=== PATIENT | female | born 1980 | race American Indian/Alaskan Native ===

== ENCOUNTER 2017-05-21 21:20 | Emergency (ER) | payer OTHER ==
[2017-05-21 21:30] VITALS: BP 94/56; PULSE 83; RESP 16; TEMP 98.2; O2SAT 98
--- NOTE | 2017-05-21 23:19 | US ---
EXAM: US Duplex Right Lower Extremity Veins CLINICAL HISTORY: 37 years old, female; Pain; Leg, lower; Right; Additional info: Right calf pain; patient gives a history of no right popliteal vein TECHNIQUE: Real-time ultrasound scan of the veins of the right lower extremity with color Doppler flow, spectral waveform analysis and compression. EXAM DATE/TIME: 05/21/2017 10:08 PM COMPARISON: There are no prior studies for comparison. FINDINGS: Deep veins: Common femoral, superficial femoral, popliteal and posterior tibial veins were evaluated. Right common femoral and superficial femoral veins are compressible. There are no intraluminal filling defects. There is expected blood flow on Doppler imaging. There is change in waveform with augmentation. Right popliteal vein could not be identified. There are multiple small collateral veins in the popliteal fossa. There is non-compressibility of the right posterior tibial vein. There is occlusive thrombus in the right posterior tibial vein. There are varicosities at the right ankle IMPRESSION: Right lower extremity/posterior tibial vein deep venous thrombosis; absence of the right popliteal vein with multiple small collaterals; varicosities at the ankle
--- NOTE | 2017-05-21 23:33 | ED PDOC ---
Lower Extremity Pain/Injury Time Seen by Provider: 05/21/17 21:55 Chief Complaint (Nursing): Lower Extremity Problem/Injury Chief Complaint (Provider): Right calf pain x 3 days History Per: Patient History/Exam Limitations: no limitations Onset/Duration Of Symptoms: Days Current Symptoms Are (Timing): Still Present Additional Complaint(s): Pt reprots right calf pain after having a hysterectomy. Pt denies trauma. 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 Past Medical History Reviewed: Historical Data, Nursing Documentation, Vital Signs Vital Signs: Last Vital Signs Temp 98.2 F 05/21/17 21:26 Pulse 83 05/21/17 21:26 Resp 16 05/21/17 21:26 BP 94/56 L 05/21/17 21:26 Pulse Ox 98 05/21/17 21:26 - Medical History PMH: Graves' Disease - Surgical History Surgical History: No Surg Hx - Family History Family History: States: No Known Family Hx - Living Arrangements Living Arrangements: With Family - Home Medications Home Medications: Ambulatory Orders Medication Instructions Recorded Naproxen [Naprosyn] 500 mg PO Q12H #20 tab 09/26/14 Apixaban [Eliquis] 10 mg PO BID #28 tablet 05/21/17 - Allergies Allergies/Adverse Reactions: Allergies Allergy/AdvReac Type Severity Reaction Status Date / Time No Known Allergies Allergy Verified 05/21/17 21:26 Review of Systems ROS Statement: Except As Marked, All Systems Reviewed And Found Negative Musculoskeletal: Positive for: Leg Pain (Right, calf ) Physical Exam - Reviewed Nursing Documentation Reviewed: Yes Vital Signs Reviewed: Yes - Physical Exam Appears: Positive for: Well, Non-toxic, No Acute Distress Head Exam: Positive for: ATRAUMATIC, NORMAL INSPECTION, NORMOCEPHALIC Skin: Positive for: Normal Color, Warm, DRY Eye Exam: Positive for: Normal appearance ENT: Positive for: Normal ENT Inspection Neck: Positive for: Normal, Painless ROM Cardiovascular/Chest: Positive for: Regular Rate, Rhythm Respiratory: Positive for: Normal Breath Sounds. Negative for: Accessory Muscle Use, Respiratory Distress Back: Positive for: Normal Inspection Extremity: Positive for: Normal ROM, Tenderness, Calf Tenderness Neurologic/Psych: Positive for: Alert, Oriented - ECG O2 Sat by Pulse Oximetry: 98 Disposition - Clinical Impression Clinical Impression: Tibial DVT (deep venous thrombosis) - Patient ED Disposition Is Patient to be Admitted: No Counseled Patient/Family Regarding: Diagnosis, Need For Followup, Rx Given - Disposition Disposition: Routine/Home Disposition Time: 23:30 Condition: GOOD Prescriptions: Apixaban [Eliquis] 10 mg PO BID #28 tablet Instructions: Deep Venous Thrombosis (ED) Forms: [facility] ED School/Work Excuse
== END 2017-05-21 23:56 | disposition home or self-care (01) ==
LOC: H.ER 21:20
DX: I82.409 Acute embolism and thrombosis of unspecified deep veins of unspecified lower extremity (principal)

== ENCOUNTER 2017-08-28 18:19 | Emergency (ER) | payer OTHER ==
[2017-08-28 18:29] VITALS: BP 122/79; RESP 16; TEMP 98.2
[2017-08-28 19:12] LABS: BASO # 0.1 K/uL (0.0-0.2); BASO % 1.3 % (0.0-2.0); EOS # 0.2 K/uL (0.0-0.7); EOS % 4.5 % (0.0-4.0); HEMATOCRIT 37.3 % (34.0-47.0); LYMPH # 1.6 K/uL (1.0-4.3); LYMPH % 40.6 % (20.0-40.0); MEAN CELL VOLUME 84.3 fl (81.0-99.0); MEAN CORPUSCULAR HEMOGLOBIN 26.3 pg (27.0-31.0); MEAN CORPUSCULAR HGB CONC 31.2 g/dL (33.0-37.0); MEAN PLATELET VOLUME 9.8 fl (7.2-11.7); MONO # 0.4 K/uL (0.0-0.8); MONO % 11.3 % (0.0-10.0); NEUT # 1.6 K/uL (1.8-7.0); NEUT % 42.3 % (50.0-75.0); NRBC % 0.1 % (0.0-0.0); RED CELL DISTRIBUTION WIDTH 17.6 % (11.5-14.5); WHITE BLOOD COUNT 3.8 K/uL (4.8-10.8)
[2017-08-28 19:23] LABS: ALB/GLOB RATIO 1.2 (1.0-2.1); ALKALINE PHOSPHATASE 57 U/L (38-126); ALT/SGPT 35 U/L (9-52); AST/SGOT 34 U/L (14-36); BILIRUBIN,TOTAL 0.4 mg/dl (0.2-1.3); BLOOD UREA NITROGEN 10 mg/dl (7-17); CALCIUM 9.8 mg/dL (8.4-10.2); CARBON DIOXIDE 26 mmol/L (22-30); CHLORIDE 104 mmol/L (98-107); GFR AFRICAN-AMERICAN > 60; GLUCOSE,RANDOM 104 mg/dL (65-105); POTASSIUM 4.2 MMOL/L (3.6-5.0); SODIUM 146 mmol/l (132-148); TOTAL PROTEIN 8.8 G/DL (6.3-8.2)
--- NOTE | 2017-08-28 19:23 | ED PDOC ---
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 Denied any falls, injuries or pain with movements. Patient stated she discontinued her Eloquis dose 3 days ago. Denies any cough/uri/fevers/chills. Denies any recent procedures/travel. Patient has h/o DVT from a hysterosalpingogram procedure in past for which she takes Eloquis PMD: [facility] Past Medical History Reviewed: Historical Data, Nursing Documentation, Vital Signs Vital Signs: Last Vital Signs Temp 98.2 F 08/28/17 18:27 Pulse 64 08/28/17 18:36 Resp 16 08/28/17 18:27 BP 122/79 08/28/17 18:27 Pulse Ox 94 L 08/28/17 19:54 - Medical History PMH: Diabetes (pre), Deep Vein Thrombosis, Graves' Disease (pre) Other PMH: uterine fibroids; klippel trenaunay madrid syndrome - Family History Family History: States: Unknown Family Hx - Social History Current smoker - smoking cessation education provided: No Ex-Smoker (has not smoked in the last 12 months): No Alcohol: None Drugs: Denies - Home Medications Home Medications: Ambulatory Orders Medication Instructions Recorded Naproxen [Naprosyn] 500 mg PO Q12H #20 tab 09/26/14 Apixaban [Eliquis] 10 mg PO BID #28 tablet 05/21/17 - Allergies Allergies/Adverse Reactions: Allergies Allergy/AdvReac Type Severity Reaction Status Date / Time No Known Allergies Allergy Verified 08/28/17 19:22 Review of Systems ROS Statement: Except As Marked, All Systems Reviewed And Found Negative Cardiovascular: Positive for: Chest Pain (left-sided) Respiratory: Positive for: Shortness of Breath. Negative for: SOB with Exertion Musculoskeletal: Negative for: Other (injuries) Physical Exam - Reviewed Nursing Documentation Reviewed: Yes Vital Signs Reviewed: Yes - Physical Exam Appears: Positive for: Well, Non-toxic, No Acute Distress Head Exam: Positive for: ATRAUMATIC, NORMAL INSPECTION, NORMOCEPHALIC Skin: Positive for: Normal Color Eye Exam: Positive for: Normal appearance ENT: Positive for: Normal ENT Inspection Neck: Positive for: Normal, Painless ROM, Supple. Negative for: Decreased ROM Cardiovascular/Chest: Negative for: Chest Non Tender Respiratory: Positive for: Normal Breath Sounds, Accessory Muscle Use, Other ( clear auscultation bilaterally). Negative for: Decreased Breath Sounds, Crackles, Rales, Rhonchi, Wheezing, Respiratory Distress Gastrointestinal/Abdominal: Positive for: Normal Exam, Bowel Sounds, Soft. Negative for: Tenderness Back: Positive for: Normal Inspection. Negative for: L CVA Tenderness, R CVA Tenderness Extremity: Positive for: Normal ROM Neurologic/Psych: Positive for: Alert, Oriented - Laboratory Results Result Diagrams: 08/28/17 19:10 08/28/17 19:11 - ECG O2 Sat by Pulse Oximetry: 94 (RA) Pulse Ox Interpretation: Normal - Radiology X-Ray: Viewed By Me (CLIVE) Medical Decision Making Medical Decision Making: Initial Impression: Chest pain Initial Plan: * CTA chest * EKG * CMP * Troponin I * CBC * PTT * PT * CXR Time: 1825 --EKG: Bradycardic at 56 BMP. No ectopy or acute changes. Scribe Attestation: Documented by Sheron Millan, acting as a scribe for Sheila Reeves PA-C. Provider Scribe Attestation: All medical record entries made by the Scribe were at my direction and personally dictated by me. I have reviewed the chart and agree that the record accurately reflects my personal performance of the history, physical exam, medical decision making, and the department course for this patient. I have also personally directed, reviewed, and agree with the discharge instructions and disposition. Disposition - Clinical Impression Clinical Impression: Chest pain - Patient ED Disposition Is Patient to be Admitted: Transfer of Care - Disposition Disposition: Transfer of Care Disposition Time: 19:53 Condition: FAIR Forms: [facility] ([place]) Patient Signed Over To: Juanita Nazario Handoff Comments: CTA CHEST PENDING
[2017-08-28] MEDS ORDERED: Sodium Chloride 0.9% 50 ML IV ONE (19:24)
[2017-08-28] MEDS ORDERED: Iodixanol 320 MG/ML 100 ML BOTTLE IV ONE (19:24)
[2017-08-28 19:28] LABS: PARTIAL THROMBOPLASTIN TIME 32.4 Seconds (25.6-37.1)
--- NOTE | 2017-08-28 21:52 | ED PDOC ---
- Laboratory Results Result Diagrams: 08/28/17 19:10 08/28/17 19:11 - ECG O2 Sat by Pulse Oximetry: 94 (RA) - Progress ED Course And Treament: Case endorsed to designer/writer from Leandro TAFOYA pending CTA EXAM: CT Angiography Chest With Intravenous Contrast CLINICAL HISTORY: The patient is a 37 years female; Pain; Chest pain; Other: Chest pressure; Patient HX: HX of dvt. HX of graves disease; Additional info: R/O pe 08/28/2017 6:56 PM TECHNIQUE: Axial computed tomographic angiography images of the chest with intravenous contrast using pulmonary embolism protocol. All CT scans at this facility use one or more dose reduction techniques, viz.: automated exposure control; ma/kV adjustment per patient size (including targeted exams where dose is matched to indication; i.e. head); or iterative reconstruction technique. MIP reconstructed images were created and reviewed. Coronal and sagittal reformatted images were created and reviewed. CONTRAST: 80 mL of [id number] administered intravenously. COMPARISON: No relevant prior studies available. FINDINGS: Pulmonary arteries: No evidence of acute pulmonary embolism up to the major segmental level.One or more very small peripheral pulmonary emboli cannot be excluded. Correlate clinically. Aorta: No acute findings. No thoracic aortic aneurysm. Lungs: No consolidation. Pleural space: Unremarkable. No significant effusion. No pneumothorax. Heart: Unremarkable. No cardiomegaly. No significant pericardial effusion. No evidence of RV dysfunction. Bones/joints: No acute fracture. No dislocation. Soft tissues: Unremarkable. Lymph nodes: Unremarkable. No enlarged lymph nodes. IMPRESSION: No evidence of acute pulmonary embolism up to the major segmental level.One or more very small peripheral pulmonary emboli cannot be excluded. Correlate clinically. Patient resting comfortably, states symptoms have resolved. Vitals stable. Patient educated on findings, discharged with instructions to follow up PMD 2-3 days. Continue Eloquis. return ot ED for worsening/concerning symptoms. Disposition - Clinical Impression Clinical Impression: Chest pain - POA Present On Arrival: None - Disposition Disposition: Routine/Home Disposition Time: 22:20 Condition: STABLE Instructions: Chest Pain (ED) Forms: [facility] (Slovenian)
[2017-08-28 21:58] VITALS: PULSE 55
[2017-08-28 22:21] VITALS: O2SAT 94
--- NOTE | 2017-08-29 08:32 | CT ---
PROCEDURE: CT Chest with contrast (Pulmonary Angiogram) HISTORY: R/O PE COMPARISON: None available. TECHNIQUE: Axial computed tomography images were obtained of the chest in the pulmonary arterial phase of enhancement. Coronal and sagittal reformatted images were created and reviewed. Intravenous contrast dose: 80 mL Visipaque 320 Radiation dose: Total exam DLP = 286.76 mGy-cm. This CT exam was performed using one or more of the following dose reduction techniques: Automated exposure control, adjustment of the mA and/or kV according to patient size, and/or use of iterative reconstruction technique. FINDINGS: PULMONARY ARTERIES: Unremarkable. No pulmonary embolism. AORTA: No acute findings. No thoracic aortic aneurysm. LUNGS: Unremarkable. No nodule, mass or pulmonary consolidation. PLEURAL SPACES: Unremarkable. No effusion or pneuomothorax. HEART: Unremarkable. No cardiomegaly. No significant pericardial effusion. LYMPH NODES: No lymphadenopathy. BONES, CHEST WALL: Unremarkable. No fracture or destructive lesion OTHER FINDINGS: Unremarkable. IMPRESSION: No evidence of pulmonary embolism. Unremarkable CT examination. Preliminary interpretation of this examination was reported by [facility] at 9:06 p.m. on 08/28/2017. There is concurrence of this report with the preliminary interpretation.
--- NOTE | 2017-08-29 09:31 | RAD ---
HISTORY: CP COMPARISON: 09/26/2014 TECHNIQUE: Chest PA and lateral FINDINGS: LUNGS: No active pulmonary disease. PLEURA: No significant pleural effusion identified. No pneumothorax apparent. CARDIOVASCULAR: Normal. OSSEOUS STRUCTURES: No significant abnormalities. VISUALIZED UPPER ABDOMEN: Normal. OTHER FINDINGS: None. IMPRESSION: No active disease.
== END 2017-08-28 22:36 | disposition home or self-care (01) ==
LOC: H.ER 18:19
DX: R07.89 Other chest pain (principal); Z86.718 Personal history of other venous thrombosis and embolism; Q87.2 Congenital malformation syndromes predominantly involving limbs; Q85.9 Phakomatosis, unspecified
CPT/HCPCS: 71020; 71275; 80053; 81025; 84484; 85025; 85610; 85730; 99284; Q9967